=== PATIENT | male | born 1965 | race American Indian/Alaskan Native ===

== ENCOUNTER 2019-05-08 14:14 | Inpatient (IN) | payer OTHER ==
[2019-05-08] MEDS ORDERED: SODIUM CHLORIDE 0.9% 1000 ML 1,000 ML IV ONE ×2 (14:24→16:43)
--- NOTE | 2019-05-08 14:25 | Emergency Department Report ---
Stated Complaint: SUGAR HIGH Time Seen by Provider: 05/08/19 14:22 - HPI History of Present Illness: the pt is a 54 y/o M p/w a cc of dizziness. The pt states he's had polyuria and polydipsia x ~3 weeks. The pt states for the past 4 days he's felt "Fuzzy, dizzy" and hasnt had an appetite. Pt denies n/v - Exam Vital Signs: Vital Signs 05/08/19 14:23 Temperature 98.3 F Pulse Rate 109 H Respiratory 20 Rate Blood Pressure 145/113 O2 Sat by Pulse 98 Oximetry MSE screening note: Focused history and physical exam performed. Due to findings the following was ordered: cbc ED Disposition for MSE Condition: Stable
[2019-05-08 14:40] LABS: Basophils % (Auto) 0.3 % (0.0-1.8); Eosinophils % (Auto) 0.4 % (0.0-4.3); Hematocrit 40.9 % (35.5-45.6); Hemoglobin 13.3 gm/dl (11.8-15.2); Lymphocytes # (Auto) 2.3 K/mm3 (1.2-5.4); Lymphocytes % (Auto) 26.1 % (13.4-35.0); Mean Corpuscular HGB Conc 33 % (32-34); Mean Corpuscular Volume 87 fl (84-94); Monocytes # (Auto) 0.7 K/mm3 (0.0-0.8); Monocytes % (Auto) 8.3 % (0.0-7.3); Platelet Count 372 K/mm3 (140-440); Red Blood Count 4.73 M/mm3 (3.65-5.03); Red Cell Distribution Width 12.3 % (13.2-15.2)
[2019-05-08 14:59] LABS: Albumin 4.5 g/dL (3.9-5)
--- NOTE | 2019-05-08 16:28 | Emergency Department Report ---
ED General Adult HPI - General Chief complaint: Hyperglycemia Stated complaint: SUGAR HIGH Time Seen by Provider: 05/08/19 14:23 Source: patient, RN notes reviewed, old records reviewed Mode of arrival: Wheelchair Limitations: Physical Limitation - History of Present Illness Initial comments: Patient is a pleasant 54-year-old gentleman who is not known to myself previously. He follows with primary care doctor Dr. Swanson at [place] He has a history of hypertension, does not have a history of diabetes that he is aware of. He presents to the ER after being sent here from a local clinic. Complains of weakness, malaise, fatigue, lightheadedness, polyuria, polydipsia, dry mouth. Apparently had outpatient blood glucose level of greater than 1000. He denies physical pain at this time. He denies abdominal pain. He endorses decreased appetite. Symptoms constant, getting worse, do not radiate anywhere, worsened with physical exertion and decreased with rest. No complaint of chest pain -: Gradual, days(s), week(s) Quality: other Consistency: other Improves with: other Worsens with: other Associated Symptoms: weakness ED Review of Systems ROS: Stated complaint: SUGAR HIGH Other details as noted in HPI Constitutional: malaise, weakness Eyes: other (Patient endorses painless binocular blurry vision) Respiratory: denies: wheezing Cardiovascular: denies: chest pain Gastrointestinal: denies: nausea, vomiting, diarrhea Genitourinary: frequency. denies: dysuria Neurological: weakness Hematological/Lymphatic: denies: easy bleeding ED Past Medical Hx - Past Medical History Previous Medical History?: Yes Hx Hypertension: Yes Hx Arthritis: Yes - Surgical History Past Surgical History?: No - Social History Smoking Status: Light Tobacco Smoker Substance Use Type: None ED Physical Exam - General Limitations: No Limitations General appearance: alert, anxious - Head Head exam: Present: atraumatic, normocephalic - Eye Eye exam: Present: normal appearance, EOMI. Absent: nystagmus - ENT ENT exam: Present: mucous membranes dry, normal external ear exam, other (Patient has poor dentition) - Neck Neck exam: Present: normal inspection, full ROM. Absent: tenderness, meningismus - Respiratory Respiratory exam: Present: normal lung sounds bilaterally. Absent: respiratory distress - Cardiovascular Cardiovascular Exam: Present: regular rate, normal rhythm, tachycardia, normal heart sounds. Absent: systolic murmur, diastolic murmur, rubs, gallop - GI/Abdominal GI/Abdominal exam: Present: soft. Absent: distended, tenderness, guarding, rebound, rigid, pulsatile mass - Rectal Rectal exam: Present: deferred - Extremities Exam Extremities exam: Present: normal inspection, full ROM, other (2+ pulses noted in the bilateral upper and lower extremities. There is no palpable cord. negative Homans sign. Muscular compartments are soft. The pelvis is stable.). Absent: calf tenderness - Back Exam Back exam: Present: normal inspection, full ROM. Absent: tenderness, CVA tenderness (R), CVA tenderness (L), paraspinal tenderness, vertebral tenderness - Neurological Exam Neurological exam: Present: alert, other (There is no facial droop. The tongue is midline. Extraocular movements are intact bilaterally. There is 5 out of 5 strength in bilateral upper and lower extremities. Sensation is intact to light touch bilateral upper and lower extremities. ). Absent: motor sensory deficit - Psychiatric Psychiatric exam: Present: depressed, anxious - Skin Skin exam: Present: warm, dry, intact, normal color. Absent: rash ED Course Vital Signs 05/08/19 14:23 Temperature 98.3 F Pulse Rate 109 H Respiratory 20 Rate Blood Pressure 145/113 O2 Sat by Pulse 98 Oximetry - Reevaluation(s) Reevaluation #1: 05/08/19 17:04 Dr Neda White to admit Sodium is appreciated, this is a pseudohyponatremia, secondary to hyperglycemia. It should correct with IV fluids and insulin. ED Medical Decision Making - Lab Data Result diagrams: 05/08/19 14:27 05/08/19 14:27 Vital Signs 05/08/19 14:23 Temperature 98.3 F Pulse Rate 109 H Respiratory 20 Rate Blood Pressure 145/113 O2 Sat by Pulse 98 Oximetry Lab Results 05/08/19 05/08/19 05/08/19 Range/Units 14:27 14:27 14:27 WBC 9.0 (4.5-11.0) K/mm3 RBC 4.73 (3.65-5.03) M/mm3 Hgb 13.3 (11.8-15.2) gm/dl Hct 40.9 (35.5-45.6) % MCV 87 (84-94) fl MCH 28 (28-32) pg MCHC 33 (32-34) % RDW 12.3 L (13.2-15.2) % Plt Count 372 (140-440) K/mm3 Lymph % (Auto) 26.1 (13.4-35.0) % [place] % (Auto) 8.3 H (0.0-7.3) % Eos % (Auto) 0.4 (0.0-4.3) % Baso % (Auto) 0.3 (0.0-1.8) % Lymph # 2.3 (1.2-5.4) K/mm3 [place] # 0.7 (0.0-0.8) K/mm3 Eos # 0.0 (0.0-0.4) K/mm3 Baso # 0.0 (0.0-0.1) K/mm3 Seg Neutrophils % 64.9 (40.0-70.0) % Seg Neutrophils # 5.8 (1.8-7.7) K/mm3 VBG pH 7.349 (7.320-7.420) Sodium 125 L (137-145) mmol/L Potassium 4.5 (3.6-5.0) mmol/L Chloride 85.2 L (98-107) mmol/L Carbon Dioxide 20 L (22-30) mmol/L Anion Gap 24 mmol/L BUN 30 H (9-20) mg/dL Creatinine 1.7 H (0.8-1.5) mg/dL Estimated GFR 51 ml/min BUN/Creatinine Ratio 18 % Glucose 865 H* (75-100) mg/dL POC Glucose (70-105) Calcium 10.0 (8.4-10.2) mg/dL Total Bilirubin 0.80 (0.1-1.2) mg/dL AST 11 (5-40) units/L ALT 12 (7-56) units/L Alkaline Phosphatase 110 (35-129) units/L Total Protein 8.2 (6.3-8.2) g/dL Albumin 4.5 (3.9-5) g/dL Albumin/Globulin Ratio 1.2 % Lipase 116 H (13-60) units/L 02/16/20 Range/Units 14:31 WBC (4.5-11.0) K/mm3 RBC (3.65-5.03) M/mm3 Hgb (11.8-15.2) gm/dl Hct (35.5-45.6) % MCV (84-94) fl MCH (28-32) pg MCHC (32-34) % RDW (13.2-15.2) % Plt Count (140-440) K/mm3 Lymph % (Auto) (13.4-35.0) % [place] % (Auto) (0.0-7.3) % Eos % (Auto) (0.0-4.3) % Baso % (Auto) (0.0-1.8) % Lymph # (1.2-5.4) K/mm3 [place] # (0.0-0.8) K/mm3 Eos # (0.0-0.4) K/mm3 Baso # (0.0-0.1) K/mm3 Seg Neutrophils % (40.0-70.0) % Seg Neutrophils # (1.8-7.7) K/mm3 VBG pH (7.320-7.420) Sodium (137-145) mmol/L Potassium (3.6-5.0) mmol/L Chloride (98-107) mmol/L Carbon Dioxide (22-30) mmol/L Anion Gap mmol/L BUN (9-20) mg/dL Creatinine (0.8-1.5) mg/dL Estimated GFR ml/min BUN/Creatinine Ratio % Glucose (75-100) mg/dL POC Glucose 392 H (70-105) Calcium (8.4-10.2) mg/dL Total Bilirubin (0.1-1.2) mg/dL AST (5-40) units/L ALT (7-56) units/L Alkaline Phosphatase (35-129) units/L Total Protein (6.3-8.2) g/dL Albumin (3.9-5) g/dL Albumin/Globulin Ratio % Lipase (13-60) units/L - EKG Data -: EKG Interpreted by Ca EKG shows normal: sinus rhythm Rate: normal - EKG Data When compared to previous EKG there are: previous EKG unavailable 05/08/19 17:13 Sinus rhythm, 93 bpm, there is a normal axis, the QTC is within normal limits, the AK intervals within normal limits, T wave inversions, abnormal EKG, motion artifact. No prior for comparison. Not a STEMI. - Medical Decision Making Differential diagnosis, including but not limited to: Dehydration, hyperglycemia, hyperosmolar state, diabetic ketoacidosis, renal insufficiency Assessment and plan: 54-year-old gentleman with probable new onset diabetes, and concomitant symptoms, manifested by polyuria, polydipsia, malaise, fatigue and weakness, blood glucose greater than 800, anion gap appreciated, decreased serum bicarbonate noted, and patient also has mild renal insufficiency. Plan to i nitiate IV fluids, insulin therapy, admit to the medical service for hyperglycemic crisis. Critical Care Time: Yes Critical care time in (mins) excluding proc time.: 35 Critical care attestation.: If time is entered above; I have spent that time in minutes in the direct care of this critically ill patient, excluding procedure time. ED Disposition Clinical Impression: Hyperglycemia, Metabolic acidosis, Renal insufficiency, Dehydration Disposition: DC-09 OP ADMIT IP TO THIS HOSP Is pt being admited?: Yes Condition: Stable
[2019-05-08] MEDS ORDERED: DEXTROSE 50% IN WATER (25GM) 50 ML SYRINGE IV PRN (16:43)
[2019-05-08] MEDS ORDERED: INSULIN REGULAR, HUMAN 100 UNITS/1 ML IV ONE (16:43)
[2019-05-08] MEDS ORDERED: D5W/0.45% NACL/KCL 20 MEQ 20 MEQ/1,000 ML BAG IV SCH (17:00)
[2019-05-08] MEDS ORDERED: INSULIN REGULAR, HUMAN 100 UNITS in SODIUM CHLORIDE 0.9% 99 ML IV SCH (17:00)
[2019-05-08] MEDS ORDERED: ALBUTEROL 2.5 MG/3 ML NEBU IH PRN (17:05)
--- NOTE | 2019-05-08 17:05 | History and Physical Report ---
History of Present Illness Chief complaint: I havent been feeling good History of present illness: 54-year-old male with HTN, OA, obesity presents to ED for evaluation. Patient states that he has experienced generalized weakness, malaise, fatigue over the past 1 week with progressively worsening symptoms over the same timeframe. Patient acknowledges polyuria, polydipsia, polyphagia, as well as nocturia. Patient was seen at a local clinic and was found to have a serum glucose of greater than 1000. Patient was instructed to seek further medical care. Patient was transported to [facility] via private vehicle. Patient was seen and evaluated in the emergency department. Lab and imaging studies were reviewed. Patient found to have new onset diabetes mellitus complicated by diabetic ketoacidosis. Patient admitted to ICU and initiated on DKA protocol. Patient treated with IV fluid resuscitation therapy, as well as insulin drip. Patient denies fever, chills, chest pain, palpitations, shortness of breath, hemoptysis, bright red blood per rectum, unintentional weight loss, night sweats, skin rash, or known ill contacts. No prior admission for review. No medication listed at time of admission for reconciliation. Past History Past Medical History: arthritis, hypertension, other (See HPI) Past Surgical History: No surgical history, Other (Reviewed) Social history: , lives with family Family history: diabetes, hypertension Medications and Allergies Allergies Allergy/AdvReac Type Severity Reaction Status Date / Time No Known Allergies Allergy Unverified 05/08/19 17:13 Active Meds: Active Medications Dextrose (D50w (25gm) Syringe) 0 ml IV Q30MIN PRN; Protocol PRN Reason: Hypoglycemia Insulin Human Regular 100 (units/ Sodium Chloride) 100 mls @ 1 mls/hr IV TITR MARY; Protocol Potassium Chloride/Dextrose/Sod Cl (D5w/0.45% Nacl/Kcl 20 Meq) 20 meq in 1,000 mls @ 125 mls/hr IV DIRECT MARY Sodium Chloride (Nacl 0.9% 1000 Ml) 1,000 mls @ 999 mls/hr IV BOLUS ONE Stop: 05/08/19 17:43 Sodium Chloride (Sodium Chloride Flush Syringe 10 Ml) 10 ml IV PRN NR Stop: 05/09/19 16:59 Review of Systems Constitutional: no weight loss, no weight gain, no fever, no chills Ears, nose, mouth and throat: no ear pain, no ear discharge, no tinnitis, no decreased hearing, no nose pain, no nasal congestion, no sinus pressure Cardiovascular: no chest pain, no orthopnea, no palpitations, no edema, no syncope Respiratory: no cough, no cough with sputum, no excessive sputum, no hemoptysis Gastrointestinal: no nausea, no vomiting, no diarrhea, no constipation Genitourinary Male: no dysuria, no hematuria, no flank pain, no discharge, no urinary frequency, no urinary hesitancy Rectal: no pain, no incontinence, no bleeding Musculoskeletal: no neck stiffness, no neck pain, no shooting arm pain, no arm numbness/tingling Integumentary: no rash, no pruritis, no redness, no sores, no wounds, no jaundice Neurological: no transient paralysis, no paralysis, no weakness, no parathesias, no numbness, no tingling, no syncope Psychiatric: no anxiety, no memory loss, no change in sleep habits, no sleep disturbances, no hypersomnia, no change in libido, no suicidal ideation Endocrine: polyphagia, excessive thirst, polydipsia, polyuria, nocturia, high blood sugars, no cold intolerance, no heat intolerance, no deepening of the voice, no thyroid mass, no palpatations Hematologic/Lymphatic: no easy bruising, no easy bleeding, no lymphadenopathy Allergic/Immunologic: no urticaria, no allergic rhinitis, no wheezing, no persistent infections, no anaphylaxis Exam - Constitutional Vitals: Temp Pulse Resp BP Pulse Ox 98.3 F 109 H 20 145/113 98 05/08/19 14:23 05/08/19 14:23 05/08/19 14:23 05/08/19 14:23 05/08/19 14:23 General appearance: Present: mild distress - EENT Eyes: Present: PERRL ENT: hearing intact, clear oral mucosa - Neck Neck: Present: supple, normal ROM - Respiratory Respiratory effort: normal Respiratory: bilateral: CTA - Cardiovascular Heart Sounds: Present: S1 & S2. Absent: rub, click - Extremities Extremities: pulses symmetrical, No edema Peripheral Pulses: within normal limits - Abdominal General gastrointestinal: Present: soft, non-tender, non-distended, normal bowel sounds Male genitourinary: Present: normal - Integumentary Integumentary: Present: clear, warm, dry - Musculoskeletal Musculoskeletal: gait normal, strength equal bilaterally - Psychiatric Psychiatric: appropriate mood/affect, intact judgment & insight - Neurologic Neurologic: CNII-XII intact, moves all extremities Results - Labs CBC & Chem 7: 05/08/19 14:27 05/08/19 16:57 Labs: Abnormal lab results 05/08/19 05/08/19 05/08/19 Range/Units 14:27 14:27 14:31 RDW 12.3 L (13.2-15.2) % [place] % (Auto) 8.3 H (0.0-7.3) % Sodium 125 L (137-145) mmol/L Chloride 85.2 L (98-107) mmol/L Carbon Dioxide 20 L (22-30) mmol/L BUN 30 H (9-20) mg/dL Creatinine 1.7 H (0.8-1.5) mg/dL Glucose 865 H* (75-100) mg/dL POC Glucose 392 H (70-105) Lipase 116 H (13-60) units/L Assessment and Plan - Patient Problems (1) DKA (diabetic ketoacidoses) Status: Acute Qualifiers: Diabetes mellitus type: type 1 Diabetes mellitus complication detail: wit hout coma Qualified Code(s): E10.10 - Type 1 diabetes mellitus with ketoa cidosis without coma Plan to address problem: DKA protocol: Insulin drip, IV fluid resuscitation therapy, serial BMP, monitor urine output every shift, admit to ICU, hemoglobin A1c The high probability of a clinically significant, sudden or life threatening deterioration of the [endocrine, renal, neurologic] system(s) required my full and direct attention, intervention and personal management. The aggregate critical care time was [65] minutes. This time is in addition to time spent performing reported procedures but includes the following: [x] Data Review and interpretation [x] Patient assessment and monitoring of vital signs [x] Documentation [x] Medication orders and management (2) Obesity (BMI 30.0-34.9) Status: Acute Plan to address problem: Balanced diet, increase physical activity at discharge. (3) HTN (hypertension) Status: Acute Qualifiers: Hypertension type: essential hypertension Qualified Code(s): I10 - Essential (primary) hypertension Plan to address problem: Monitor blood pressure every shift, continue medical management. (4) Metabolic acidosis Status: Acute Plan to address problem: Treat DKA, IV fluid resuscitation therapy, repeat BMP in a.m. (5) Acute kidney injury Status: Acute Plan to address problem: IV fluid resuscitation therapy, monitor urine output every shift, avoid nephrotoxic agents, monitor serum creatinine, repeat BMP in a.m. (6) DVT prophylaxis Status: Acute Plan to address problem: SCD to bilateral lower extremities while in bed
[2019-05-08] MEDS ORDERED: SODIUM CHLORIDE 0.9% 1000 ML 1,000 ML IV SCH (17:15)
[2019-05-08 17:21] LABS: Calcium 9.8 mg/dL (8.4-10.2)
[2019-05-08 18:23] LABS: Bilirubin,Urine NEG (Negative); Blood,Urine SM (Negative); Color,Urine Straw (Yellow); Mucus,Urine FEW /HPF; Protein,Urine <15 mg/dL mg/dL (Negative); Urobilinogen,Urine < 2.0 mg/dL (<2.0)
[2019-05-08 19:07] LABS: Calcium 9.3 mg/dL (8.4-10.2)
[2019-05-08 21:20] LABS: BUN/Creatinine Ratio 18; Blood Urea Nitrogen 25 mg/dL (9-20); Calcium 9.5 mg/dL (8.4-10.2); Hemolysis Index 5
[2019-05-08 23:56] LABS: BUN/Creatinine Ratio 20; Blood Urea Nitrogen 24 mg/dL (9-20); Calcium 9.7 mg/dL (8.4-10.2); Hemolysis Index 4
[2019-05-09 01:21] LABS: BUN/Creatinine Ratio 21; Blood Urea Nitrogen 23 mg/dL (9-20); Calcium 9.7 mg/dL (8.4-10.2); Hemolysis Index 2
--- NOTE | 2019-05-09 08:46 | Progress Note ---
Assessment and Plan Assessment and plan: (1) DKA (diabetic ketoacidoses) DKA protocol: Insulin drip, IV fluid resuscitation therapy, serial BMP, monitor urine output every shift, Anion gap closed, glucose improved. Will stop Insiulin drip, start Novolin 70/30, start diet, transfer to [facility] surg patient willing to be discharged on Insulin (2) Obesity (BMI 30.0-34.9) Balanced diet, increase physical activity at discharge. (3) HTN (hypertension) Monitor blood pressure every shift, continue medical management. (4) Metabolic acidosis Treat DKA, IV fluid resuscitation therapy, repeat BMP in a.m. (5) Acute kidney injury due to vasomotor nephropathy IV fluid resuscitation therapy, monitor urine output every shift, avoid nephr otoxic agents, monitor serum creatinine, repeat BMP in a.m. (6) DVT prophylaxis SCD to bilateral lower extremities while in bed The high probability of a clinically significant, sudden or life threatening deterioration of the [endocrine, renal, neurologic] system(s) required my full and direct attention, intervention and personal management. The aggregate critical care time was [65] minutes. This time is in addition to time spent performing reported procedures but includes the following: [x] Data Review and interpretation [x] Patient assessment and monitoring of vital signs [x] Documentation [x] Medication orders and management History Interval history: Gen weakness Hospitalist Physical - Physical exam Narrative exam: GEN: Not in acute distress, lying in bed,obese HEENT: Normocephalic, atraumatic, Neck: supple, No JVD Lungs: Clear to auscultation ,no wheeze, heart;S1 and S2 reg, no murmurs, rubs or gallop Abd:soft, non tender , non distended, normal bowel sounds Ext: No edema, no clubbing, no cyanosis Neuro: Awake,alert, oriented X 3, no focal neurological signs - Constitutional Vitals: Temp Pulse Resp BP Pulse Ox 98.8 F 79 11 L 131/80 99 05/09/19 08:00 05/09/19 08:00 05/09/19 08:00 05/09/19 08:00 05/09/19 08:00 General appearance: Present: mild distress Results - Labs CBC & Chem 7: 05/08/19 14:27 05/09/19 21:58 Labs: Laboratory Last Values WBC 9.0 K/mm3 (4.5-11.0) 05/08/19 14: RBC 4.73 M/mm3 (3.65-5.03) 05/08/19 14: Hgb 13.3 gm/dl (11.8-15.2) 05/08/19 14:27 Hct 40.9 % (35.5-45.6) 05/08/19 14: MCV 87 fl (84-94) 05/08/19 14: MCH 28 pg (28-32) 05/08/19 14: MCHC 33 % (32-34) 05/08/19 14: RDW 12.3 % (13.2-15.2) L 05/08/19 14: Plt Count 372 K/mm3 (140-440) 05/08/19 14:27 Lymph % (Auto) 26.1 % (13.4-35.0) 05/08/19 14:27 [place] % (Auto) 8.3 % (0.0-7.3) H 05/08/19 14:27 Eos % (Auto) 0.4 % (0.0-4.3) 05/08/19 14:27 Baso % (Auto) 0.3 % (0.0-1.8) 05/08/19 14: Lymph # 2.3 K/mm3 (1.2-5.4) 05/08/19 14: [place] # 0.7 K/mm3 (0.0-0.8) 05/08/19 14: Eos # 0.0 K/mm3 (0.0-0.4) 05/08/19 14: Baso # 0.0 K/mm3 (0.0-0.1) 05/08/19 14:27 Seg Neutrophils % 64.9 % (40.0-70.0) 05/08/19 14: Seg Neutrophils # 5.8 K/mm3 (1.8-7.7) 05/08/19 14:27 VBG pH 7.349 (7.320-7.420) 05/08/19 14:27 Sodium 139 mmol/L (137-145) 05/09/19 00:48 Potassium 3.2 mmol/L (3.6-5.0) L 05/09/19 00:48 Chloride 101.9 mmol/L (98-107) 05/09/19 00:48 Carbon Dioxide 22 mmol/L (22-30) 05/09/19 00:48 Anion Gap 18 mmol/L 05/09/19 00:48 BUN 23 mg/dL (9-20) H 05/09/19 00:48 Creatinine 1.1 mg/dL (0.8-1.5) 05/09/19 00:48 Estimated GFR > 60 ml/min 05/09/19 00:48 BUN/Creatinine Ratio 21 % 05/09/19 00:48 Glucose 171 mg/dL (75-100) H 05/09/19 00:48 POC Glucose 131 (70-105) H 05/09/19 08:10 Hemoglobin A1c 10.8 % (4-6) H 05/08/19 16:57 Calcium 9.7 mg/dL (8.4-10.2) 05/09/19 00:48 Phosphorus 4.00 mg/dL (2.5-4.5) 05/08/19 16:57 Magnesium 2.00 mg/dL (1.7-2.3) 05/08/19 16:57 Total Bilirubin 0.80 mg/dL (0.1-1.2) 05/08/19 14:27 AST 11 units/L (5-40) 05/08/19 14:27 ALT 12 units/L (7-56) 05/08/19 14:27 Alkaline Phosphatase 110 units/L (35-129) 05/08/19 14:27 Total Creatine Kinase 121 units/L (55-170) 05/08/19 16:57 Total Protein 8.2 g/dL (6.3-8.2) 05/08/19 14:27 Albumin 4.5 g/dL (3.9-5) 05/08/19 14:27 Albumin/Globulin Ratio 1.2 % 05/08/19 14:27 Lipase 116 units/L (13-60) H 05/08/19 14:27 Urine Color Straw (Yellow) 05/08/19 17:51 Urine Turbidity Clear (Clear) 05/08/19 17:51 Urine pH 5.0 (5.0-7.0) 05/08/19 17:51 Ur Specific [place] 1.025 (1.003-1.030) 05/08/19 17:51 Urine Protein <15 mg/dl mg/dL (Negative) 05/08/19 17:51 Urine Glucose (UA) >=500 mg/dL (Negative) 05/08/19 17:51 Urine Ketones Tr mg/dL (Negative) 05/08/19 17:51 Urine Blood Sm (Negative) 05/08/19 17:51 Urine Nitrite Neg (Negative) 05/08/19 17:51 Urine Bilirubin Neg (Negative) 05/08/19 17:51 Urine Urobilinogen < 2.0 mg/dL (<2.0) 05/08/19 17:51 Ur Leukocyte Esterase Neg (Negative) 05/08/19 17:51 Urine WBC (Auto) 1.0 /HPF (0.0-6.0) 05/08/19 17:51 Urine RBC (Auto) 1.0 /HPF (0.0-6.0) 05/08/19 17:51 U Epithel Cells (Auto) < 1.0 /HPF (0-13.0) 05/08/19 17:51 Urine Mucus Few /HPF 05/08/19 17:51 Active Medications - Current Medications Current Medications: Generic Name Dose Route Start Last Admin Trade Name Freq PRN Reason Stop Dose Admin Albuterol 2.5 mg 05/08/19 17:05 Proventil IH Q3HRT PRN Shortness Of Breath Dextrose 0 ml 05/08/19 16:43 D50w (25gm) Syringe IV Q30MIN PRN Hypoglycemia Protocol Sodium Chloride 1,000 mls @ 75 mls/hr 05/09/19 08:45 Nacl 0.9% 1000 Ml IV DIRECT MARY Insulin Human Isoph/Insulin Regular 10 unit 05/09/19 09:00 Humulin 70/30 SUB-Q BIDDIAB MARY Potassium Chloride 40 meq 05/09/19 09:00 K-Dur PO 05/09/19 13:01 Q4H MARY Sodium Chloride 10 ml 05/08/19 17:00 Sodium Chloride Flush Syringe 10 Ml IV 05/09/19 16:59 PRN NR Sodium Chloride 10 ml 05/08/19 22:00 05/08/19 22:50 Sodium Chloride Flush Syringe 10 Ml IV 10 ml BID MARY Administration Sodium Chloride 10 ml 05/08/19 17:05 Sodium Chloride Flush Syringe 10 Ml IV PRN PRN LINE FLUSH
[2019-05-09] MEDS ORDERED: INSULIN NPH/REGULAR 70/30 INJ SUB-Q SCH (09:00)
[2019-05-09] MEDS: POTASSIUM CHLORIDE ER 20 MEQ TAB PO SCH ×2 (09:10→16:44)
[2019-05-09] MEDS: SODIUM CHLORIDE 0.9% 1000 ML 1,000 ML IV SCH (09:11)
[2019-05-09 10:54] LABS: BUN/Creatinine Ratio 21; Blood Urea Nitrogen 23 mg/dL (9-20); Calcium 9.2 mg/dL (8.4-10.2); Hemolysis Index 8
[2019-05-09] MEDS: INSULIN LISPRO 100 UNIT/ML SUB-Q SCH ×2 (11:48→18:43)
--- NOTE | 2019-05-09 12:05 | Consultation ---
History of Present Illness - Reason for Consult Consult date: 05/09/19 DKA Requesting physician: MONET BURNS - History of Present Illness 65 y/o male with new diagnosis of diabetes. Came in with complaints of polydipsia and polyuria. has HTN. Past History Past Medical History: arthritis, hypertension, other (See HPI) Past Surgical History: No surgical history, Other (Reviewed) Social history: , lives with family Family history: diabetes, hypertension Medications and Allergies Allergies Allergy/AdvReac Type Severity Reaction Status Date / Time No Known Allergies Allergy Unverified 05/08/19 17:13 Active Meds: Active Medications Albuterol (Proventil) 2.5 mg IH Q3HRT PRN PRN Reason: Shortness Of Breath Dextrose (D50w (25gm) Syringe) 0 ml IV Q30MIN PRN; Protocol PRN Reason: Hypoglycemia Sodium Chloride (Nacl 0.9% 1000 Ml) 1,000 mls @ 75 mls/hr IV DIRECT MARY Last Admin: 05/09/19 09:11 Dose: 75 mls/hr Documented by: Insulin Human Isoph/Insulin Regular (Humulin 70/30) 20 unit SUB-Q BIDDIAB MARY Insulin Human Lispro (Humalog) 0 unit SUB-Q ACHS MARY; Protocol Last Admin: 05/09/19 11:48 Dose: 8 unit Documented by: Potassium Chloride (K-Dur) 40 meq PO Q4H MARY Stop: 05/09/19 13:01 Last Admin: 05/09/19 09:10 Dose: 40 meq Documented by: Sodium Chloride (Sodium Chloride Flush Syringe 10 Ml) 10 ml IV PRN NR Stop: 05/09/19 16:59 Sodium Chloride (Sodium Chloride Flush Syringe 10 Ml) 10 ml IV BID [facility] Last Admin: 05/09/19 09:13 Dose: 10 ml Documented by: Sodium Chloride (Sodium Chloride Flush Syringe 10 Ml) 10 ml IV PRN PRN PRN Reason: LINE FLUSH Review of Systems All systems: negative Exam - Constitutional Vitals: Temp Pulse Resp BP Pulse Ox 98.8 F 84 18 131/85 97 05/09/19 08:00 05/09/19 11:00 05/09/19 11:00 05/09/19 11:00 05/09/19 11:00 General appearance: Present: no acute distress - EENT Eyes: Present: PERRL ENT: hearing intact - Neck Neck: Present: supple, normal ROM - Respiratory Respiratory effort: normal Respiratory: bilateral: CTA - Cardiovascular Rhythm: regular Heart Sounds: Present: S1 & S2 - Extremities Extremities: no ischemia - Abdominal General gastrointestinal: Present: soft, non-tender Results - Labs CBC & Chem 7: 05/08/19 14:27 05/09/19 09:53 Labs: Abnormal lab results 05/08/19 05/08/19 05/08/19 Range/Units 14:27 14:27 14:31 RDW 12.3 L (13.2-15.2) % Harding % (Auto) 8.3 H (0.0-7.3) % Sodium 125 L (137-145) mmol/L Potassium (3.6-5.0) mmol/L Chloride 85.2 L (98-107) mmol/L Carbon Dioxide 20 L (22-30) mmol/L BUN 30 H (9-20) mg/dL Creatinine 1.7 H (0.8-1.5) mg/dL Glucose 865 H* (75-100) mg/dL POC Glucose 392 H (70-105) Hemoglobin A1c (4-6) % Lipase 116 H (13-60) units/L 05/08/19 05/08/19 05/08/19 Range/Units 16:57 16:57 18:25 RDW (13.2-15.2) % Harding % (Auto) (0.0-7.3) % Sodium 122 L 129 L D (137-145) mmol/L Potassium (3.6-5.0) mmol/L Chloride 84.3 L 91.9 L (98-107) mmol/L Carbon Dioxide 16 L 19 L (22-30) mmol/L BUN 32 H 28 H (9-20) mg/dL Creatinine 1.6 H (0.8-1.5) mg/dL Glucose 907 H* 665 H* (75-100) mg/dL POC Glucose (70-105) Hemoglobin A1c 10.8 H (4-6) % Lipase (13-60) units/L 05/08/19 05/08/19 05/08/19 Range/Units 20:40 20:45 21:37 RDW (13.2-15.2) % Harding % (Auto) (0.0-7.3) % Sodium 133 L (137-145) mmol/L Potassium (3.6-5.0) mmol/L Chloride 94.6 L (98-107) mmol/L Carbon Dioxide 21 L (22-30) mmol/L BUN 25 H (9-20) mg/dL Creatinine (0.8-1.5) mg/dL Glucose 515 H* (75-100) mg/dL POC Glucose 476 H 495 H (70-105) Hemoglobin A1c (4-6) % Lipase (13-60) units/L 05/08/19 05/08/19 05/09/19 Range/Units 22:57 23:03 00:15 RDW (13.2-15.2) % Harding % (Auto) (0.0-7.3) % Sodium 135 L (137-145) mmol/L Potassium 3.2 L (3.6-5.0) mmol/L Chloride (98-107) mmol/L Carbon Dioxide (22-30) mmol/L BUN 24 H (9-20) mg/dL Creatinine (0.8-1.5) mg/dL Glucose 302 H (75-100) mg/dL POC Glucose 298 H 198 H (70-105) Hemoglobin A1c (4-6) % Lipase (13-60) units/L 05/09/19 05/09/19 05/09/19 Range/Units 00:48 00:51 02:09 RDW (13.2-15.2) % Harding % (Auto) (0.0-7.3) % Sodium (137-145) mmol/L Potassium 3.2 L (3.6-5.0) mmol/L Chloride (98-107) mmol/L Carbon Dioxide (22-30) mmol/L BUN 23 H (9-20) mg/dL Creatinine (0.8-1.5) mg/dL Glucose 171 H (75-100) mg/dL POC Glucose 174 H 143 H (70-105) Hemoglobin A1c (4-6) % Lipase (13-60) units/L 05/09/19 05/09/19 05/09/19 Range/Units 03:06 04:16 05:23 RDW (13.2-15.2) % Harding % (Auto) (0.0-7.3) % Sodium (137-145) mmol/L Potassium (3.6-5.0) mmol/L Chloride (98-107) mmol/L Carbon Dioxide (22-30) mmol/L BUN (9-20) mg/dL Creatinine (0.8-1.5) mg/dL Glucose (75-100) mg/dL POC Glucose 169 H 197 H 163 H (70-105) Hemoglobin A1c (4-6) % Lipase (13-60) units/L 05/09/19 05/09/19 05/09/19 Range/Units 06:13 06:57 08:10 RDW (13.2-15.2) % Harding % (Auto) (0.0-7.3) % Sodium (137-145) mmol/L Potassium (3.6-5.0) mmol/L Chloride (98-107) mmol/L Carbon Dioxide (22-30) mmol/L BUN (9-20) mg/dL Creatinine (0.8-1.5) mg/dL Glucose (75-100) mg/dL POC Glucose 153 H 135 H 131 H (70-105) Hemoglobin A1c (4-6) % Lipase (13-60) units/L 05/09/19 05/09/19 Range/Units 09:53 10:06 RDW (13.2-15.2) % Harding % (Auto) (0.0-7.3) % Sodium 136 L (137-145) mmol/L Potassium (3.6-5.0) mmol/L Chloride (98-107) mmol/L Carbon Dioxide 18 L (22-30) mmol/L BUN 23 H (9-20) mg/dL Creatinine (0.8-1.5) mg/dL Glucose 231 H (75-100) mg/dL POC Glucose 320 H (70-105) Hemoglobin A1c (4-6) % Lipase (13-60) units/L - Imaging and Cardiology Chest x-ray: image reviewed (clear CXR, no evidence of acute lung disease) Assessment and Plan 54 y/o male with new diagnosis of diabetes admitted with DKA 1. Anion Gap Closed 2. Will need long acting insulin, stop drip and feed patient 3. Stable for transfer to floor.
--- NOTE | 2019-05-09 13:06 | XRay Report ---
CHEST 1 VIEW 05/09/2019 9:58 AM INDICATION / CLINICAL INFORMATION: hyponatremia. COMPARISON: None available. FINDINGS: SUPPORT DEVICES: None. HEART / MEDIASTINUM: Normal heart size. Atherosclerosis in the thoracic aorta. LUNGS / PLEURA: No significant pulmonary or pleural abnormality. No pneumothorax. ADDITIONAL FINDINGS: No significant additional findings. IMPRESSION: 1. No acute findings. Signer Name: Alessio Barnes MD Signed: 05/09/2019 1:02 PM Workstation Name: [id number]
[2019-05-09] MEDS ORDERED: POTASSIUM CHLORIDE ER 20 MEQ TAB PO SCH (17:00)
[2019-05-09] MEDS: INSULIN NPH/REGULAR 70/30 INJ SUB-Q SCH (18:44)
[2019-05-09 22:41] LABS: BUN/Creatinine Ratio 18; Blood Urea Nitrogen 20 mg/dL (9-20); Calcium 9.2 mg/dL (8.4-10.2); Hemolysis Index 2
[2019-05-10] MEDS: INSULIN LISPRO 100 UNIT/ML SUB-Q SCH ×2 (00:15→09:19)
[2019-05-10] MEDS: SODIUM CHLORIDE 0.9% 1000 ML 1,000 ML IV SCH (05:28)
[2019-05-10 07:12] LABS: BUN/Creatinine Ratio 18; Blood Urea Nitrogen 18 mg/dL (9-20); Calcium 9.2 mg/dL (8.4-10.2); Hemolysis Index 5
[2019-05-10 07:21] VITALS: BP 110/69
[2019-05-10] MEDS ORDERED: HEPARIN 5,000 UNIT/1 ML VIAL SUB-Q SCH (08:00)
[2019-05-10] MEDS: INSULIN NPH/REGULAR 70/30 INJ SUB-Q SCH (09:20)
--- NOTE | 2019-05-10 10:04 | Discharge Summary ---
Providers - Providers Date of Admission: 05/08/19 17:05 Date of discharge: 05/10/19 Attending physician: CARLEY COLE 05/08/19 17:37 Consult to Physician [CONS] Urgent Comment: Answering service notified @ 17:52- LXM Consulting Provider: PAM EATON Physician Instructions: Reason For Exam: icu admission 05/09/19 13:47 Consult to Dietitian/Nutrition [CONS] Routine Physician Instructions: Reason For Exam: New diabetes Reason for Consult: Diet education Primary care physician: NIGEL DINH Hospitalization Condition: Good Hospital course: 54-year-old male with a strong family history of diabetes hypertension. Presented with DKA patient was placed on insulin drip transferred to the ICU. Sugars defervesced well gap closed patient had no further electrolyte abnormalities. Blood pressure remained stable. Patient converted to 70/30 insulin 20 units twice daily. Accu-Cheks came down to 161 141. Patient stable for discharge and further titration as outpatient. Patient be discharged on 70/30 insulin 24 units twice daily. Follow-up primary care physician 1 week for the titration. At that time they may consider lipid panel. Patient is started on ALEK inhibitor renal protection. Disposition: [id number] TO HOME OR SELFCARE - Discharge Diagnoses (1) DKA (diabetic ketoacidoses) Status: Acute Qualifiers: Diabetes mellitus type: type 1 Diabetes mellitus complication detail: without coma Qualified Code(s): E10.10 - Type 1 diabetes mellitus with ketoacidosis without coma Comment: DKA resolved change 70/30 insulin. 24 units twice daily. Further convert to a possible oral hypoglycemics after 1 week with primary care physician. (2) HTN (hypertension) Status: Acute Qualifiers: Hypertension type: essential hypertension Qualified Code(s): I10 - Essential (primary) hypertension Comment: Continues to have optimal control with ALEK inhibitor. (3) Obesity (BMI 30.0-34.9) Status: Acute Comment: Weight loss diet low-carb diet. Exercise brisk 30 minutes 4-5 times per week. Core Measure Documentation - Palliative Care Palliative Care/ Comfort Measures: Not Applicable - Core Measures Any of the following diagnoses?: none Exam - Constitutional Vitals: Temp Pulse Resp BP Pulse Ox 98.3 F 79 18 110/69 98 05/10/19 06:38 05/10/19 06:38 05/10/19 06:38 05/10/19 06:38 05/10/19 06:38 General appearance: Present: no acute distress, well-nourished - EENT Eyes: Present: PERRL ENT: hearing intact, clear oral mucosa - Neck Neck: Present: supple, normal ROM - Respiratory Respiratory effort: normal Respiratory: bilateral: CTA - Cardiovascular Heart Sounds: Present: S1 & S2. Absent: rub, click - Extremities Extremities: pulses symmetrical, No edema Peripheral Pulses: within normal limits - Abdominal General gastrointestinal: Present: soft, non-tender, non-distended, normal bowel sounds Male genitourinary: Present: normal - Integumentary Integumentary: Present: clear, warm, dry - Musculoskeletal Musculoskeletal: gait normal, strength equal bilaterally - Psychiatric Psychiatric: appropriate mood/affect, intact judgment & insight - Neurologic Neurologic: CNII-XII intact, moves all extremities Plan Activity: no restrictions Weight Bearing Status: Full Weight Bearing Diet: diabetic Special Instructions: record blood sugar diary Follow up with: NIGEL DINH MD [Primary Care Provider] - 7 Days Prescriptions: Insulin NPH/Regular [NovoLIN 70/30] 24 unit SUB-Q BIDDIAB #7 units
--- NOTE | 2019-05-10 12:25 | Progress Note ---
Assessment and Plan 54 y/o male with new diagnosis of diabetes admitted with DKA 1. No pulm issues 2. Will sign off. Call if questions. Subjective Date of service: 05/10/19 Interval history: Successful transfer out of ICU. Stable. Objective - Constitutional Vitals: Vital Signs - 12hr 05/10/19 06:38 Temperature 98.3 F Pulse Rate 79 Respiratory 18 Rate Blood Pressure 110/69 O2 Sat by Pulse 98 Oximetry - Labs CBC & Chem 7: 05/08/19 14:27 05/10/19 05:49 Labs: Abnormal lab results 05/09/19 05/09/19 05/09/19 Range/Units 17:48 21:58 22:33 Sodium 134 L (137-145) mmol/L Carbon Dioxide 20 L (22-30) mmol/L Glucose 375 H (75-100) mg/dL POC Glucose 293 H 373 H (70-105) 05/10/19 Range/Units 05:49 Sodium (137-145) mmol/L Carbon Dioxide 20 L (22-30) mmol/L Glucose 161 H (75-100) mg/dL POC Glucose (70-105) Medications & Allergies - Medications Allergies/Adverse Reactions: Allergies No Known Allergies Allergy (Unverified 05/08/19 17:13) Home Medications: Home Medications Medication Instructions Recorded Confirmed Last Taken Type Insulin NPH/Regular [NovoLIN 70/30] 24 unit SUB-Q BIDDIAB #7 units 05/10/19 Unknown Rx Active Medications: Generic Name Dose Route Start Last Admin Trade Name Freq PRN Reason Stop Dose Admin Albuterol 2.5 mg 05/08/19 17:05 Proventil IH Q3HRT PRN Shortness Of Breath Dextrose 0 ml 05/08/19 16:43 D50w (25gm) Syringe IV Q30MIN PRN Hypoglycemia Protocol Heparin Sodium (Porcine) 5,000 unit 05/10/19 08:00 05/10/19 09:23 Heparin SUB-Q 5,000 unit Q8HR MARY Administration Sodium Chloride 1,000 mls @ 75 mls/hr 05/09/19 08:45 05/10/19 05:28 Nacl 0.9% 1000 Ml IV 75 mls/hr DIRECT MARY Administration Insulin Human Isoph/Insulin Regular 20 unit 05/09/19 17:00 05/10/19 09:20 Humulin 70/30 SUB-Q 20 unit BIDDIAB MARY Administration Insulin Human Lispro 0 unit 05/09/19 11:30 05/10/19 09:19 Humalog SUB-Q 3 unit ACHS MARY Administration Protocol Sodium Chloride 10 ml 05/08/19 22:00 05/10/19 00:16 Sodium Chloride Flush Syringe 10 Ml IV 10 ml BID MARY Administration Sodium Chloride 10 ml 05/08/19 17:05 Sodium Chloride Flush Syringe 10 Ml IV PRN PRN LINE FLUSH
== END 2019-05-10 11:30 | disposition home or self-care (01) | DRG 637 ==
LOC: ED 14:14 → CC1 17:05 → 3A 05-09 12:15
PROVIDERS: ADMIT Internal Medicine; ATTEND Internal Medicine
DX: E10.10 Type 1 diabetes mellitus with ketoacidosis without coma (principal); N17.0 Acute kidney failure with tubular necrosis; I10 Essential (primary) hypertension; E66.9 Obesity, unspecified; F17.200 Nicotine dependence, unspecified, uncomplicated; E86.0 Dehydration; M19.90 Unspecified osteoarthritis, unspecified site; Z68.31 Body mass index [BMI] 31.0-31.9, adult; Z82.49 Family history of ischemic heart disease and other diseases of the circulatory system; Z83.3 Family history of diabetes mellitus
CPT/HCPCS: 36415; 71045; 80048; 80053; 81001; 82550; 82805; 82962; 83036; 83690; 83735; 84100; 85025; 93005; 93010; 96361; 96374; G0378; J1644; J1815; J7030

== ENCOUNTER 2020-03-14 09:36 | Outpatient (CLI) | payer OTHER ==
--- NOTE | 2020-03-14 10:48 | XRay Report ---
. LEFT SHOULDER 3 VIEWS INDICATION: LEFT SHOULDER ARTHRITIS. COMPARISON: None. IMPRESSION: No acute osseous or soft tissue abnormality. Mild osteoarthritic changes are noted at the glenohumeral joint and acromioclavicular joint. Signer Name: Yamil Buck Jr, MD Signed: 03/14/2020 10:43 AM Workstation Name: [id number]
== END 2020-03-14 09:37 | disposition home or self-care (01) ==
LOC: XRAY 09:36
PROVIDERS: ATTEND Internal Medicine
DX: M19.012 Primary osteoarthritis, left shoulder (principal)